=== PATIENT | male | born 1940 ===

== ENCOUNTER 2020-12-27 07:00 | Inpatient (IN) | payer OTHER ==
[~2020-12-27] VITALS: Ht 175.3 cm; Wt 99.8 kg
[2020-12-27] MEDS ORDERED: XARELT PO (08:06)
[2020-12-27] MEDS ORDERED: DOLOGESIC 500-1 EACH PO (08:07)
[2021-01-03] MEDS ORDERED: XARELTO20 MG PO (09:22)
[2021-01-05] MEDS ORDERED: OXYC1TAB9 PO (07:53)
[2021-01-05] MEDS ORDERED: XARELTO20 MG PO (07:53)
[2021-01-05] MEDS ORDERED: BACTRIM DS TAB1 EACH PO (07:53)
[2021-01-05] MEDS ORDERED: INTEGRA PLUS C1 EACH PO (07:53)
== END 2021-01-05 14:23 | DRG 470 ==
LOC: SURG 01-02 07:00 → SURH 01-02 09:34 → O/R 01-02 09:34 → SURG 01-02 18:15 → SURH 01-02 18:17
PROVIDERS: ADMIT Orthopaedic Surgery Sports Medicine; ATTEND Orthopaedic Surgery Sports Medicine
PROC: 0SRD0J9 Replacement of Left Knee Joint with Synthetic Substitute, Cemented, Open Approach (ICD-10-PCS; principal; 2021-01-02 18:15)
DX: M17.12 Unilateral primary osteoarthritis, left knee (principal); I48.20 Chronic atrial fibrillation, unspecified; Z79.01 Long term (current) use of anticoagulants; Z20.822 Contact with and (suspected) exposure to COVID-19